=== PATIENT | male | born 1975 | race Caucasian/White ===

== ENCOUNTER 2018-05-02 19:12 | Emergency (ER) | payer MEDICAID ==
[~2018-05-02] VITALS: Ht 172.7 cm; Wt 81.8 kg
[2018-05-02 19:16] VITALS: Ht 172.7 cm; Wt 81.8 kg
[2018-05-02 20:40] LABS: BASOPHILS 0.1 % (0-2); EOSINOPHILS 0.4 % (0-7); HEMATOCRIT 37.2 % (42.0-54.0); HEMOGLOBIN 12.6 g/dL (13.5-17.5); IMMATURE GRANULOCYTES 0.3 % (0-5); LYMPHOCYTES 10.4 % (15-50); MCH 32.1 pg (26.0-34.0); MCHC 33.9 g/dL (31.0-37.0); MCV 94.7 fL (80.0-100.0); MEAN PLATELET VOLUME 10.2 fL (7.4-10.4); MONOCYTES 12.1 % (2-11); NEUTROPHILS 76.7 % (40-80); PLATELET COUNT 177 10x3/uL (130-400); RBC 3.93 10x6/uL (4.20-6.10); RDW 12.7 % (11.5-14.5); WBC 7.1 10x3/uL (4.8-10.8)
[2018-05-02 21:53] LABS: ALBUMIN 3.5 g/dL (3.4-5.0); ALKALINE PHOSPHATASE 53 U/L (46-116); ALT (SGPT) 24 U/L (10-68); BILIRUBIN - TOTAL 0.38 mg/dL (0.2-1.3); CALC OSMOLALITY 277 mosm/kg (275-300); CALCIUM 8.1 mg/dL (8.5-10.1); CARBON DIOXIDE 22.2 mmol/L (21.0-32.0); CHLORIDE - SERUM 105 mmol/L (98-107); CREATININE - SERUM 1.1 mg/dL (0.6-1.3); GLUCOSE 109 mg/dL (74-106); POTASSIUM - SERUM 3.8 mmol/L (3.5-5.1); PROTEIN - SERUM 7.1 g/dL (6.4-8.2); SODIUM 138 mmol/L (136-145); UREA NITROGEN 15 mg/dL (7-18); eGFR NON AFRICAN AMERICAN 78 mL/min (90-120)
[2018-05-02] MEDS ORDERED: XOFLUZA40 MG PO (22:21)
[2018-05-02 22:40] VITALS: BP 124/68
== END 2018-05-02 22:40 | disposition home or self-care (01) ==
LOC: D.ER 19:12
PROVIDERS: Family Medicine
DX: J09.X2 Influenza due to identified novel influenza A virus with other respiratory manifestations (principal); R09.89 Other specified symptoms and signs involving the circulatory and respiratory systems; R50.9 Fever, unspecified

== ENCOUNTER 2018-05-14 07:32 | Emergency (ER) | payer MEDICAID ==
[~2018-05-14] VITALS: Ht 172.7 cm; Wt 81.8 kg
[~2018-05-14 07:32] MED LIST: XOFLUZA40 MG PO
[2018-05-14 07:34] VITALS: Ht 172.7 cm; Wt 81.8 kg
[2018-05-14 08:44] VITALS: BP 115/74
== END 2018-05-14 08:44 | disposition home or self-care (01) ==
LOC: D.ER 07:32
DX: M75.41 Impingement syndrome of right shoulder (principal)

== ENCOUNTER 2018-05-16 08:06 | Emergency (ER) | payer MEDICAID ==
[~2018-05-16] VITALS: Ht 172.7 cm; Wt 81.8 kg
[2018-05-16 08:08] VITALS: Ht 172.7 cm; Wt 81.8 kg
[2018-05-16] MEDS ORDERED: STERAPRED DS 1010 MG PO (09:35)
[2018-05-16] MEDS ORDERED: NAPROSYN500 MG PO (09:35)
[2018-05-16] MEDS ORDERED: SKELAXIN800 MG PO (09:35)
[2018-05-16 10:00] VITALS: BP 124/83
== END 2018-05-16 10:00 | disposition home or self-care (01) ==
LOC: D.ER 08:06
DX: M25.511 Pain in right shoulder (principal); M54.12 Radiculopathy, cervical region